=== PATIENT | male | born 1965 | race Caucasian/White ===

== ENCOUNTER → 2024-02-08 08:48 | Outpatient (REF) | payer BC, SELFPAY | LOC: RAD 08:48 | PROVIDERS: ATTENDING PHYSICIAN Family Medicine | DX: R26.89 Other abnormalities of gait and mobility (principal); G62.9 Polyneuropathy, unspecified | CPT/HCPCS: 93922; 93925 ==

== ENCOUNTER 2025-01-26 12:32 | Emergency (ER) | payer BC, SELFPAY ==
[2025-01-26] VITALS (12 sets, daily range): BP systolic 110–154; BP diastolic 61–86; PULSE 75–113; BMI 29.8
[2025-01-26 13:08] LABS: Hematocrit 37.0 % (39.0-52.0); Hemoglobin 13.3 g/dL (13.0-18.0); Mean Corp Hgb Conc. 35.9 g/dL (33.0-37.0); Mean Corpuscular Volume 87.9 fL (80.0-94.0); Nucleated Red Blood Cells % 0 % (-); Platelet Count 194 10^3/uL (130-400); Red Cell Dist. Width 12.2 % (11.5-14.5)
[2025-01-26] MEDS: NSS 1000 IV ×2 (13:26→16:50)
[2025-01-26 13:31] LABS: ALT (SGPT) 30 U/L (0-50); AST (SGOT) 28 U/L (17-59); Albumin 5.0 g/dl (3.5-5.0); Alkaline Phosphatase 35 U/L (38-126); Blood Urea Nitrogen 21 mg/dl (9-20); Calcium 10.5 mg/dl (8.4-10.2); Carbon Dioxide 20 mmol/L (22-30); Chloride 105 mmol/L (98-107); Estimated Creatinine Clearance 81 ml/min; Glucose 154 mg/dl (70-99); Potassium 3.8 mmol/L (3.5-5.1); Sodium 137 mmol/L (135-145); Total Protein 7.7 g/dl (6.3-8.2); eGFR > 60.00
[2025-01-26 13:43] LABS: Troponin I < 0.012 ng/ml
--- NOTE | 2025-01-26 13:43 | EDRN ---
Pt stood to ambulate to BR and became sl paler and dizzy. Pt then was asked to lie down and orthostatics done. HR increased and pt tachycardic and dizzy. Pt asked to void standing at side of stretcher d/t dizzines. Hector SHERMAN aware of orthostatic
VS.
[2025-01-26 13:53] LABS: COVID-19 Antigen Negative (Negative)
[2025-01-26 13:56] LABS: D-Dimer < 0.27 ug/mlFEU (0.00-0.50)
--- NOTE | 2025-01-26 13:58 | ED.GENMED ---
History of Present Illness
General
Chief Complaint: Fainting Sensation
Source: patient
Exam Limitations: none
Time Seen by Provider: 01/26/25 12:46
Nursing documentation reviewed up to this point in time: agreed with
History of Present Illness
History of Present Illness:
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
here with near s yncope
says that this morning was normal morning for him, had coffee, went to work, ate breakfast and ate lunch
around 1030 am started feeling lightheaded; coworker said he looked pale
he sat down and felt ok and then felt urge to go to the bathroom; walked 100 feet to the bathroom without difficulty; had loose diarrhea/BM and some cramps. stood up and when exiting the bathroom nearly passed out. had to sit down. he felt a pain
in his L chest and then started hyperventilating; when EMS got there, he had carpal spasm and pains in his hands/arms
pt now feels a bit better but still has 5/10 chest pain
denies h/o dvt/pe, no recent travel
no cough/cold symptoms
no fever/chills recnetly
pt did admit that he was drinking 5=6 beers daily up until 4 days ago when his son told him he was drinking too much; so he quit cold turkey
he had no isssues with shakes or withdrawal
pt has no cardiac history
pt works for [employer] that makes [employer] g[employer]
doesn't wear protective mask
says that he was working with nitrogent and 10% oxygen at the time;
Past History
Past History
ED Past Medical History: HTN
ED Past Surgical History: Appendectomy and Orthopedic (Right hand surgery)
Social History
Tobacco: Non-smoker
Alcohol: Occasional
Personal:
Living: with family
Employment: Employed (warehouse logistics coordinator)
Review of Systems
Review of Systems
Allergies reviewed?: Yes
All Other Systems: Not applicable
Phy Exam
Physical Exam
Physical Exam:
GENERAL: Alert , in no apparent distress
EYE: pupils equal and reactive
NECK: Supple
ENT: o/p clr, mmm.
CARDIAC: Regular rate and rhythm, no murmur, no edema
LUNGS: Clear breath sounds bilaterally, no acute respiratory distress, no wheezes/rales/rhonchi
ABDOMEN: Soft, without focal tenderness, no r/g, no cvat, normal bowel sounds
NEUROLOGICAL: Alert and oriented, no focal neuro deficits
SKIN: Warm and dry, skin intact.
MUSCULOSKELETAL: No edema, well perfused. neg richie's sign
PSYCH: Normal and appropriate interaction.
Course
Orders/Labs/Results
Orders:
Orders
01/26/25 12:36
Electrocardiogram (*1) Urgent
Reason for Study: Chest Pain
Cardiac Monitoring- Treatment ONCE
01/26/25 12:37
EKG- Treatment ONCE
01/26/25 12:53
Alcohol Urgent
Complete Blood Count/With Diff Urgent
Comprehensive Metabolic Panel Urgent
Creatine Phosphokinase Urgent
Comment: ADD ON
Troponin I Urgent
01/26/25 13:11
Orthostatic VS- Treatment ONCE
0.9% Sodium Chloride 1000 ml [Nss] 1,000 ml IV BOLUS
01/26/25 13:12
Add On- LAB Urgent
Tests Added?: alcohol
01/26/25 13:21
COVID-19 Antigen Urgent
Source: Nasal Swab
D-Dimer Urgent
01/26/25 13:48
Urinalysis Reflex To Culture Urgent
Date Specimen was Collected: 01/26/25
Time Specimen was Collected: 13:46
Urine Microscopic Reflex Cult Urgent
01/26/25 14:07
CR Chest - 2 Views Urgent
Comment:
Reason For Exam: chest pain
01/26/25 14:26
Add On- LAB Urgent
Tests Added?: cpk
01/26/25 15:52
Electrocardiogram (*1) Urgent
Reason for Study: Chest Pain
EKG- Treatment ONCE
0.9% Sodium Chloride 1000 ml [Nss] 1,000 ml IV BOLUS
Thiamine Injection 100 mg IV NOW STA
01/26/25 16:44
Troponin I Urgent
Abnormal Lab Results
01/26/25 01/26/25
12:53 13:48
RBC 4.21 L 10^6/uL
(4.70-6.10)
Hct 37.0 L %
(39.0-52.0)
MCH 31.6 H pg
(27.0-31.0)
MPV 10.5 H fL
(7.4-10.4)
Lymphocytes % 19.5 L %
(20.5-51.1)
Monocytes % 10.1 H %
(1.7-9.3)
Carbon Dioxide 20 L mmol/L
(22-30)
BUN 21 H mg/dl
(9-20)
Glucose 154 H mg/dl
(70-99)
Calcium 10.5 H mg/dl
(8.4-10.2)
Alkaline Phosphatase 35 L U/L
(38-126)
Creatine Kinase 190 H U/L
(55-170)
Ur Occult Blood Reflex 1+ A
(Negative)
Urine RBC 3-6 A /HPF
(0-2)
01/26/25 12:53
01/26/25 12:53
Vital Signs
Initial and Last Documented VS:
Initial Vital Signs
Temp Pulse Resp BP Pulse Ox
36.7 C 100 16 128/72 97
01/26/25 12:38 01/26/25 12:38 01/26/25 12:38 01/26/25 12:38 01/26/25 12:38
Last Documented Vital Signs
Temp Pulse Resp BP Pulse Ox
36.7 C 83 18 154/83 99
01/26/25 12:38 01/26/25 17:30 01/26/25 16:47 01/26/25 17:00 01/26/25 17:30
MDM/Problems Addressed
Differential Diagnosis Includes:
VASOVAGAL SYNCOPE, dehdyration, alcohol withdrawal, PE, ACS, pneuomnia
MDM/Problems Addressed:
60 y/o M
alcohol use
htn
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
here with near syncope and diarrhea today while at work, then got anxious, sob/hyperventilating, carpal spasm, and chest pain
he feels lightheaded still with standing
did say he stopped drinking 4 days ago due to family confronting him about issues
he says he hasn't had any withdrawal symptoms and hasn't used alcohol for [facility] 4 days
but he is getting epidsodes of diarrhea while inth er
on exam ptwas pale minimally tachycardic
not hypotensive
no abdominla tenderness
ekg nonischemic
trop neg x 1
reassuring labs
d dimer neg
cxr indep reviewed, clear
alcohol level undetectable
consider that he could be having SE from alcohol withdrawal but the timing really doesn't make as much sense
he was orthostatic prior to 1 liter of fluds, works in hot conditions, treated iwth IVF and was able to walk better to the bathroom without being lightneaded with his baseline gait
pt will have 2nd trop, thiamine just in case, and 2nd liter and likely d/c
pt ambulated well after 2nd iter
2nd trop neg
d/c home
*Pulse Oximetry
SaO2: 96
Oxygen Mode of Delivery: Room air
Patient hypoxic: no (99)
*Critical Care Note
Total Time (30-74mins, 75-104mins- exclusive of procedures): Not Applicable
ED Attending Note
-
Portions of this chart may have been created with voice recognition software.� Occasional wrong word or��sound alike� substitutions may have occurred due to the inherent limitations of voice recognition software.
Discharge Plan
Departure
Patient Disposition: Home (Routine Discharge)
Date of Disposition: 01/26/25
Time of Disposition: 17:42
Patient with high blood pressure during this ER visit?: No
Condition: Fair
Covid-19: Not Applicable
Discharge Problem:
Near syncope, Vaso-vagal reaction, Diarrhea
Instructions: Near Fainting (DC), Diarrhea in adults - ED discharge instructions
Prescriptions:
No Action
irbesartan-hydrochlorothiazide 300-12.5 mg tablet
1 tab PO DAILY
escitalopram oxalate 10 mg tablet
10 mg PO DAILY
cholecalciferol (vitamin D3) [Vitamin D3] 125 mcg (5,000 unit) Tablet
125 mcg PO DAILY
Referrals:
Radha Ayon DO [Family Provider, Family Practice] - Follow up in 5-7 days
Activity Restrictions/Additional Instructions:
YOUR WORK UP HERE WAS REASSURING
YOU PROBABLY WERE DEHYDRATED AND ALSO HAVING DIARRHEA AND HAD VASOVAGAL EPISODE
WE CHECKED FOR SIGNS OF BLOOD CLOT AND HEART ATTACK; YOU HAD IV FLUIDS AND FELT BETTER
STAY HYDRATED
BRAT DIET (BANANAS RICE APPLESAUCE TOAST) TO HELP WITH DIARRHEA
RETURN FOR: REPEATED PASSING OUT, SEVERE PAIN, SEVERE DIARRHEA, DEHYDRATION, BLOODY DIARRHEA, CHEST PAIN WITH WALKING O RANY CONCERNS
Interventions
Interventions:
*Risk Screen - Suicide Last Done: 01/26/25 12:38
*General Assessment Last Done: 01/26/25 12:38
*Neglect/Abuse Screening Last Done: 01/26/25 12:38
*ED COVID-19 Vaccine History Last Done: 01/26/25 12:50
*Nursing Disposition Last Done: 01/26/25 17:58
ED- Cardiac Assessment Last Done: 01/26/25 13:27
ED- Neurological Assessment Last Done: 01/26/25 13:27
Discharge Date and Time
Discharge Date/Time: 01/26/25 17:59
Print Language: GEORGIAN
[2025-01-26 14:02] LABS: Urine Character Clear (Clear)
[2025-01-26 14:25] LABS: Urine Squamous Cell 0-2 /LPF (Few)
[2025-01-26 14:29] LABS: Urine White Cell 0-2 /HPF (0-5)
[2025-01-26] MEDS: THIAMINE INJECTION 100 MG IV (16:52)
[2025-01-26 17:18] LABS: Troponin I < 0.012 ng/ml
== END 2025-01-26 17:59 | disposition home or self-care (01) ==
LOC: EMR 12:32
PROVIDERS: Physician Assistant; EMERGENCY PHYSICIAN Emergency Medicine; FAMILY PHYSICIAN Family Medicine
DX: R55 Syncope and collapse (principal); R19.7 Diarrhea, unspecified; Z11.52 Encounter for screening for COVID-19; G62.9 Polyneuropathy, unspecified; I10 Essential (primary) hypertension
CPT/HCPCS: 99285; 96374; 96361; 71046; 80053; 81003; 81015; 82077; 82550; 84484; 85025; 85379; 87811; 93005